=== PATIENT | female | born 1940 | race Caucasian/White ===

== ENCOUNTER → 2017-09-10 | Outpatient (CLI) | payer OTHER ==
[~2017-09-10] VITALS: Ht 152.4 cm; Wt 79.4 kg
[~2017-09-10] MED LIST: APAP500 PO; ARTHROTEC EC 71 EAC1 PO; ASPIR-LOW81 MG PO; ASPIRIN EC81 M1 PO; ASPIRIN81 M2; AVAPRO300 MG PO; CALCIUM 500 WI1 EAC3 PO; CALCIUM 600 +1 EAC1; CENTRUM SILVER1 EAC1 PO; CENTRUM SILVER1 EAC4; CHROMIUM400 MCG PO; COLACE100 MG PO; DICLOFENAC SODI75 M1; DICLOFENAC SODI75 M1 PO; ESTROPIPATE 1.1.5 M1; ESTROPIPATE PO; FISH OIL 1,0001 EAC5 PO; HYDROCODON-ACE1 EAC7 PO; LAMICTAL XR100 MG PO; LAMICTAL100 MG PO; LAMOTRIGINE150 MG PO; LEXAPRO20 MG PO; LISINOPRIL20 MG; LISINOPRIL20 MG PO; NORCO 5-325 TA1 EACH PO; NORVASC 5 MG TAB5 MG PO; NORVASC5 MG PO; OMEGA-3 FISH O1 EAC3; OMEPRAZOLE 20 M20 MG PO; OMEPRAZOLE20 M2 PO; PERCOCET 5-3251 EACH PO; PREVACID15 MG; PROBIOTIC1 EAC1 PO; PROVENTIL HFA6.7 G1 INH; ROBAXIN 750 MG750 M1 PO; ROBAXIN500 MG PO; ROSUVASTATIN CA10 MG PO; SIMVASTATIN20 MG PO; TRIAMTERENE-HC1 EAC1; TRIAMTERENE-HC1 EAC1 PO; TRIAMTERENE-HC1 EAC2 PO; TROSPIUM CHLORI20 MG PO; VITAMIN E400 UNIT; VITAMIN E400 UNIT PO; ZETIA10 MG; ZETIA10 MG PO; ZOCOR20 MG PO; ZOCOR80 MG
--- NOTE | ~2017-09-10 | HPC ---
[facility] [place] [address] PAIN MANAGEMENT CONSULTATION Name: GABY LANIER Room #: [facility] [id number] Admission: 09/10/17 Attend Phys: Farzad Romo DO Discharge: Date of : 39 Report #: [id number] THIS REPORT FOR: //name// CC: Slade Romo DATE OF SERVICE: 09/10/2017 The patient is a 77-year-old female seen one time by Dr. Miguel Romo nearly 3 years ago in 11/2014. She was seen in consultation and lost to follow up. She returns to Pain Clinic today for prolonged visit. She was seen from [id number], greater than 50% of this 40+ minute visit was spent counseling the patient. She has ongoing pain primarily low back, right hip. She notes pain is exacerbated with walking and standing. She uses a cane in her right hand. She has been seeking child day care teacher with some efficacy. She has done physical therapy off and on. Last scheduled physical therapy was nearly a year ago during the summer. She admits with some chagrin that she has not really done home exercises and irregularity. She has had multiple therapeutic interventions by Dr. Moreira including what sounds like epidural injections, intra-articular facet injections. Multiple injections over time, though she tells me the last injections were in 2016. She currently rates her pain an 8 on a VAS, again low back, right hip with the primary pain generators. Pain is described as sharp. She denies any myelopathic symptoms. She notes she has had some renal dysfunction in the past. Hence nonsteroidal anti-inflammatory agents are relatively contraindicated. She takes Tylenol for pain. Has taken hydrocodone 5/325 on occasion. REVIEW OF SYSTEMS: Complete review of systems is attached to chart and gone over with the patient. She is , seen in the company of her who is supportive. Multiple surgeries including right L4-L5 hemilaminectomy in 2003, right L2-L3 and right L3-L4 minimally invasive decompressive laminectomies by Dr. Byers in 07/2011. Most recently had a left total shoulder arthroplasty with Dr. Carrasquillo in 10/2015. Has dyslipidemia for which she takes a "statin" type agent, some chronic anxiety and depression for which she takes citalopram. Seizure disorder for which she takes Lamictal. Hypertension for which she takes Avapro, Norvasc, and triamterene/hydrochlorothiazide. Gastroesophageal reflux for which she takes omeprazole. Trospium for some bladder spasm. PHYSICAL EXAMINATION: Reveals a 77-year-old female, 152 cm tall, 79 kg with a [facility] [address] [place] [address] PAIN MANAGEMENT CONSULTATION Name: GABY LANIER Room #: REG [facility] Rosalinda.Charlotte.#: [id number] Admission: 09/10/17 Attend Phys: Farzad Romo DO Discharge: Date of : 39 Report #: [id number] BMI of 34.2 kg/m2. Blood pressure 135/64, pulse 67, respirations 14. Cranial nerves 2-12 are grossly intact. Pupils equal, react to light and accommodation. Extraocular muscles are intact. Cervical range of motion is generally full. Upper extremity strength is preserved. Thyroid is unremarkable. Heart is regular rhythmical without murmur. Lungs clear. Has a modestly endomorphic build. Rises from chair using armrest, has an antalgic gait. Right ankle has arthritic degenerative changes with the foot somewhat everted. Has pain over the right trochanteric bursa, though passive rotation of the hip is really fairly unremarkable. ROSAMARIA test is negative. Lower extremity strength is symmetric, though diminished 3-4/5 for all muscle groups tested. Achilles reflex is absent on the right, 1/4 in the left. Patellar reflex is symmetric yet marginally elicitable bilaterally. DIAGNOSTIC STUDIES: Most recent diagnostic study of the lumbar spine is somewhat dated. CT of the lumbar spine from 09/2014, findings note severe lumbar spondylosis, mild subluxation of L1 on L2, L2 on L3, and L3 on L4. Fairly severe central stenosis throughout, most particularly L5-S1. MRI of the right hip from 11/2014 notes moderate osteoarthritis of both hips, degenerative tearing of the labrum and bilateral paralabral cysts. Again, this does not correlate with significant pain on hip range of motion at this time. ASSESSMENT: 1. Neurogenic claudication in a patient, status post multiple back surgeries. 2. Failed back surgery syndrome. 3. Right trochanteric bursitis by clinical exam. 4. Bilateral hip osteoarthritis, not clinically significant at this time. 5. History of renal dysfunction per patient contraindicating NSAID use. 6. Seizure disorder, stable on lamotrigine. 7. Chronic anxiety and depression, stable. 8. Hypertension. RECOMMENDATION: Long discussion with the patient today about therapeutic option. I think she would be an excellent candidate for spinal cord stimulator. We spent a good deal of time today discussing high frequency spinal cord stimulator (Nevro), mechanism of action, risks and benefits. The patient has failed multiple surgeries, has failed multiple interventions by other providers. She is loathe to use opiate analgesics. Functional status is becoming more and more impacted. We will seek authorization for lumbar epidural injection at L4-L5 (immediately above the severe stenosis) and see if this will help with acute on chronic neurogenic claudication symptoms. If, however, this does not afford adequate relief, I have taken the liberty of giving the patient contact information for psychological evaluation as required by most third democrat payers for spinal cord stimulator. We will plan on moving forward with spinal cord stimulator trial [facility] [address] [place] [address] PAIN MANAGEMENT CONSULTATION Name: GABY LANIER Room #: REG [facility] Yoko#: [id number] Admission: 09/10/17 Attend Phys: Farzad Romo DO Discharge: Date of : 39 Report #: [id number] (Nevro) if she does not get good relief from lumbar epidural injection at next visit. <ELECTRONICALLY SIGNED> By: Farzad Romo DO 09/14/17 0710 1528 11 Farzad Romo DO /nt
[2017-09-10 12:38] VITALS: BP 135/64
== END ==
LOC: PAIN 06:54
DX: M70.61 Trochanteric bursitis, right hip (principal); M16.0 Bilateral primary osteoarthritis of hip; I10 Essential (primary) hypertension; G40.909 Epilepsy, unspecified, not intractable, without status epilepticus; F41.9 Anxiety disorder, unspecified; F32.9 Major depressive disorder, single episode, unspecified

== ENCOUNTER → 2017-09-14 | Outpatient (CLI) | payer OTHER ==
[~2017-09-14] VITALS: Ht 152.4 cm; Wt 79.4 kg
--- NOTE | ~2017-09-14 | HPC ---
[address] [address] PAIN MANAGEMENT CONSULTATION Name: GABY LANIER Room #: REG [facility] Yoko#: [id number] Admission: 09/14/17 Attend Phys: Farzad Romo DO Discharge: Date of : 39 Report #: [id number] THIS REPORT FOR: //name// CC: Slade Romo The patient is a 77-year-old female seen in consultation 09/10/2017, diagnosed with symptomatic lumbar radiculopathy status post decompressive laminectomy with ongoing neuropathic pain. We sought authorization for epidural injection under fluoroscopy today. We had spoken about a spinal cord stimulator as possible therapeutic option to manage her ongoing neuropathic pain. We elected to proceed with epidural injection under fluoroscopy today at L4-L5. Follow up in 2 weeks to evaluate efficacy. ASSESSMENT: Symptomatic lumbar radiculopathy. PROCEDURE: Lumbar epidural injection under fluoroscopy. PROCEDURE NOTE: After both written and informed consent to include risk of spinal cord damage, increased pain, weakness and dural puncture, the patient was taken to the fluoroscopy suite, placed in the prone position. After sterile prep and drape, a skin wheal with lidocaine was raised. A 22-gauge epidural Tuohy needle was inserted in the midline at L4-L5 with good loss to resistance. Negative aspiration for cerebrospinal fluid or blood was noted. Then 1 mL of Omnipaque under biplanar fluoroscopy showed good spread within the epidural space. This was followed with 60 mg of triamcinolone plus 1 mL of 1.5% preservative-free Xylocaine, 0.5 mL Xylocaine was then injected to flush the needle; it was removed. The patient was monitored for an appropriate period of time and discharged in good and stable condition. <ELECTRONICALLY SIGNED> By: Farzad Romo DO 09/17/17 0805 1210 [id number] Farzad Romo DO /nt
[2017-09-14 10:17] VITALS: BP 131/68
== END | disposition home or self-care (01) ==
LOC: PAIN 06:32
DX: M54.16 Radiculopathy, lumbar region (principal); G89.29 Other chronic pain; I10 Essential (primary) hypertension; Z98.890 Other specified postprocedural states; Z87.891 Personal history of nicotine dependence; Z88.0 Allergy status to penicillin; Z79.82 Long term (current) use of aspirin; Z79.899 Other long term (current) drug therapy

== ENCOUNTER → 2017-09-28 | Outpatient (CLI) | payer OTHER ==
[~2017-09-28] VITALS: Ht 152.4 cm; Wt 79.0 kg
--- NOTE | ~2017-09-28 | HPC ---
[facility] [place] [address] PAIN MANAGEMENT CONSULTATION Name: GABY LANIER Room #: REG [facility] Ashlie.#: [id number] Admission: 09/28/17 Attend Phys: Farzad Romo DO Discharge: Date of : 39 Report #: [id number] THIS REPORT FOR: //name// CC: Slade Romo The patient is a very pleasant 77-year-old female, prior seen in the pain clinic on 09/14/2017. We did an epidural injection at L4-L5 at that time. The patient had prior been seen in consultation on 09/10/2017. She had a lumbar decompressive laminectomy, actually had multiple back surgeries, developing neurogenic claudication symptoms. Had classic failed back syndrome. She had pain, primarily in low back, right hip and leg. Using a cane to help with balance, seeking rn progressive care unit with dwindling efficacy, was doing physical therapy somewhat off and on. She notes following the epidural injection, she had improvement in function. Before the epidural, she could not walk greater than 50 yards. Today, she can walk in from the front of the hospital into the pain clinic without having to hold onto her . She does still have ongoing pain that is rate limiting, however. She notes that she and her had gone to a reunion standing on uneven ground (it apparently [place] outdoors[place] She could only stand for about 5-10 minutes before she had to sit down. While she did get significant incremental improvement following the epidural injection, she still has ongoing pain that remains problematic. I have referred the patient to Dr. Kalyani Kelly for psychological evaluation regarding consideration for spinal cord stimulator. Not surprisingly, Dr. Kelly's prognosis and recommendations noted "she appears to have a good understanding of the procedure that she would like to undergo as well as the potential risks involved. She appears to have realistic expectations for the potential outcome of the procedure. There is no evidence of major psychological issues such as anxiety or depression." Hence, there are no psychological impediments to moving forward with spinal cord stimulator. Today, we again discussed this option. She rates the pain a 5 on a VAS at present. She is seen in company of her who is supportive. She would like to repeat epidural injection to see if she can get further incremental relief. If, however, pain continues to be "rate limiting" for functional activities such as standing and walking, she would like to move forward with spinal cord stimulator trial. We will refer her back to Dr. Miguel Romo (he had seen her back in 2014) for consideration for spinal cord stimulator trial. PHYSICAL EXAMINATION: Further notes, BMI 34 kilograms per meter squared. Blood pressure 157/78, pulse 72, respirations 20. Rises from chair using armrest. Modestly antalgic gait. Does have a trace ataxia, though she feels her bowels may be improving some. Lower extremity strength diminished, but symmetric, 3-4/5 in all muscle groups tested. Achilles reflex is absent on the right, 04/[address] [address] PAIN MANAGEMENT CONSULTATION Name: YANNICKGABY M Room #: REG [facility] Babcock#: [id number] Admission: 09/28/17 Attend Phys: Farzad Romo DO Discharge: Date of : 39 Report #: [id number] on the left. Patellar reflexes are marginally elicitable even without symmetric contraction. She does have pain over the right trochanteric bursa, though Svitlana test is negative for it. ASSESSMENT: Symptomatic lumbar radiculopathy with clinical exam and history, status post lumbar decompressive laminectomy x 3 (2003 through 2011). Failed back syndrome. RECOMMENDATION: Epidural injection under fluoroscopy today, follow up for spinal cord stimulator trial if this does not provide adequate efficacy. PROCEDURE: Lumbar epidural injection under fluoroscopy. PROCEDURE NOTE: After both written and informed consent to include risk of spinal cord damage, increased pain, weakness and dural puncture, the patient was taken to the fluoroscopy suite, placed in the prone position. After sterile prep and drape, a skin wheal with lidocaine was raised. A 22-gauge epidural Tuohy needle was inserted in the midline at L4-5 with good loss to resistance. Negative aspiration for cerebrospinal fluid or blood was noted. Then 1 mL of Omnipaque under biplanar fluoroscopy showed good spread within the epidural space. This was followed with 80 mg of triamcinolone plus 1 mL of 1.5% preservative-free Xylocaine, 0.5 mL Xylocaine was then injected to flush the needle; it was removed. The patient was monitored for an appropriate period of time and discharged in good and stable condition. By: [id number] 1853 Farzad Romo DO /nt
[2017-09-28 10:23] VITALS: BP 157/78
== END | disposition home or self-care (01) ==
LOC: PAIN 06:42
DX: M54.16 Radiculopathy, lumbar region (principal); M96.1 Postlaminectomy syndrome, not elsewhere classified; Z98.890 Other specified postprocedural states; Z87.891 Personal history of nicotine dependence; Z88.0 Allergy status to penicillin; Z79.899 Other long term (current) drug therapy; Z79.82 Long term (current) use of aspirin

== ENCOUNTER → 2018-02-16 | Outpatient (CLI) | payer OTHER | LOC: MRI 13:59 | DX: I67.82 Cerebral ischemia (principal); G31.9 Degenerative disease of nervous system, unspecified; G40.909 Epilepsy, unspecified, not intractable, without status epilepticus; R26.0 Ataxic gait ==

== ENCOUNTER → 2019-11-25 | Outpatient (CLI) | payer OTHER | LOC: LAB 08:18 | PROVIDERS: ATTEND Anesthesiology | DX: Z01.812 Encounter for preprocedural laboratory examination (principal); Z20.828 Contact with and (suspected) exposure to other viral communicable diseases ==